=== PATIENT | female | born 1945 | race Caucasian/White ===

== ENCOUNTER 2017-03-18 12:31 | Emergency (ER) | payer SELFPAY ==
[2017-03-18 12:36] VITALS: BP 111/79; PULSE 86; RESP 18; TEMP 98; O2SAT 97
--- NOTE | 2017-03-18 12:58 | ED PDOC ---
HPI: General Adult Time Seen by Provider: 03/18/17 12:37 Chief Complaint (Nursing): Med Refill History Per: Patient Additional Complaint(s): Pt. states she arrived from [place] yesterday but forgot her Omlesartan/ Amlodipine 40mg/10mg and Levothyroxine 100mcg back at home. Last doses were taken yesterday. She will be here in [facility] for 10 days. Pt. is requesting Rx for her meds. Offers no complaints. Past Medical History Reviewed: Historical Data, Nursing Documentation, Vital Signs Vital Signs: Last Vital Signs Temp 98.0 F 03/18/17 12:32 Pulse 86 03/18/17 12:32 Resp 18 03/18/17 12:32 BP 111/79 03/18/17 12:32 Pulse Ox 97 03/18/17 12:32 - Medical History PMH: HTN, Hypothyroidism - Surgical History Other surgeries: Thyroidectomy - Family History Family History: States: No Known Family Hx - Home Medications Home Medications: Ambulatory Orders Medication Instructions Recorded Amlodipine Bes/Olmesartan Med 1 tab PO DAILY #14 tablet 03/18/17 [Nydia 10-40 mg Tablet] Levothyroxine [Synthroid] 100 mcg PO DAILY #14 tab 03/18/17 - Allergies Allergies/Adverse Reactions: Allergies Allergy/AdvReac Type Severity Reaction Status Date / Time No Known Allergies Allergy Verified 03/18/17 12:43 - ECG O2 Sat by Pulse Oximetry: 97 Disposition - Clinical Impression Clinical Impression: Medication refill - Patient ED Disposition Is Patient to be Admitted: No - Disposition Referrals: [facility] [Outside] Disposition: Routine/Home Disposition Time: 12:40 Condition: STABLE Prescriptions: Amlodipine Bes/Olmesartan Med [Nydia 10-40 mg Tablet] 1 tab PO DAILY #14 tablet Levothyroxine [Synthroid] 100 mcg PO DAILY #14 tab Instructions: Medicine Refill (ED)
== END 2017-03-18 13:03 | disposition home or self-care (01) ==
LOC: H.ER 12:31
DX: Z76.0 Encounter for issue of repeat prescription (principal)